=== PATIENT | female | born 1985 | race African-American/Black ===

== ENCOUNTER 2016-09-03 06:00 | Inpatient (IN) ==
[2016-09-03] MEDS ORDERED: Naloxone 0.4 MG/ML INJ IVP PRN (06:42)
[2016-09-03] MEDS ORDERED: Metoclopramide 10 MG/2 ML VIAL IVP PRN (06:42)
[2016-09-03] MEDS ORDERED: Famotidine 20 MG/2 ML VIAL IVP PRN (06:42)
[2016-09-03] MEDS ORDERED: *HR* Nalbuphine 20 MG/ML AMPUL IVP PRN (06:45)
[2016-09-03] MEDS ORDERED: Ringers Solution, Lactated 1,000 ML IVC SCH (06:45)
[2016-09-03 08:18] LABS: Basophils % 0.3 %; Eosinophils # 0.1 K/mcL (0.0-0.6); Eosinophils % 0.6 %; Hematocrit 35.6 % (35.3-44.9); Hemoglobin 12.2 g/dL (11.5-15.4); Immature Granulocytes % 0.6 % (0-4); Lymphocytes # 2.4 K/mcL (0.6-4.6); Mean Corpuscular HGB Conc 34.3 g/dL (31.6-35.5); Mean Corpuscular Hemoglobin 30.2 pg (28.0-33.3); Mean Corpuscular Volume 88.1 fL (83.0-100.0); Mean Platelet Volume 10.5 fL (9.4-12.4); Monocytes # 1.1 K/mcL (0.0-1.3); Monocytes % 6.6 %; Neutrophils # 12.2 K/mcL (1.6-8.9); Platelet Count 258 K/mcL (140-400); Red Blood Count 4.04 M/mcL (3.82-4.97); Red Cell Distribution Width 12.9 % (11.5-14.5); Segmented Neutrophils % 76.9 %
[2016-09-03] MEDS ORDERED: miSOPROStol 25 MCG TABLET PO PRN (08:27)
--- NOTE | 2016-09-03 08:33 | OB Labor Progress Note ---
Date of Encounter: 09/03/16 Time of Encounter: 08:31 Labor Progress Note - Subjective Subjective: Pt without c/o - Vital Signs Vital Signs: BP 154/97 - Cervix Cervix: 2/60/-2 - Heart Tones Heart Tones: RNST - Interventions Interventions: coffman catheter placed in cervix and baloon filled with 40 cc NS - Plan Plan: Will give Cytotec 50 mcg PO. Expect .
[2016-09-03] MEDS ORDERED: cephALEXin 500 MG CAPSULE PO SCH (09:00)
--- NOTE | 2016-09-03 09:42 | OB/GYN History & Physical ---
Date of Encounter: 09/03/16 Time of Encounter: 09:36 History of Present Illness Chief complaint: IOL, IUGR, Chronic HTN HPI: Ms. Paul is a 31 year old female Past Med Surg Social Fam HX - Past Medical History Medical history: hypertension Psychiatric history: no psych history - Past Surgical History Surgical History: no surgical history - Social History Smoking Status: Current every day smoker Packs per day: 1/2 Smokeless Tobacco Status: No Alcohol use: none Drug use: marijuana - Family History Mother Hx Family Cardiac Disorders: Yes (HTN) Obstetrical History - Pregnancies : 1 Medications and Allergies Labetalol [Trandate] 200 mg PO TID 09/03/16 [History] Nitrofurantoin Monohyd/M-Cryst [Macrobid 100 mg Capsule] 100 mg PO BID 09/03/16 [History] Vit/Iron Fumarate/FA [ Tablet] 1 each PO DAILY 09/03/16 [ History] cephALEXin [Keflex] 500 mg PO BID 09/03/16 [History] Allergies No Known Allergies Allergy (Verified 09/03/16 07:28) Results Result Diagrams: 09/03/16 06:38 Abnormal lab results WBC 15.9 K/mcL (4.3-11.1) H 09/03/16 06:38 Neutrophils # 12.2 K/mcL (1.6-8.9) H 09/03/16 06:38 All other labs normal.
[2016-09-03 10:18] LABS: Protein/Creatinine Ratio,Urine 0.11 mg/mg (0-0.20)
[2016-09-03 11:58] LABS: Alanine Aminotransferase 20 Units/L (0-55); Aspartate Amino Transferase 15 Units/L (5-34); BUN/Creatinine Ratio 10 (6-26); Blood Urea Nitrogen 7 mg/dL (7-20); Lactate Dehydrogenase 200 Units/L (159-327); eGFR For African Americans > 60 (> 60); eGFR For Non-African Americans > 60 (> 60)
[2016-09-03] MEDS ORDERED: *HR* Labetalol 20 MG/4 ML SYRINGE IVP ONE (12:22)
--- NOTE | 2016-09-03 12:26 | OB Labor Progress Note ---
Date of Encounter: 09/03/16 Time of Encounter: 12:23 Labor Progress Note - Subjective Subjective: Pt resting in room. Complains of occasional cramping, coffman remains in place. - Vital Signs Vital Signs: Last 2 BP 159/92 and 161/95 - Heart Tones Heart Tones: 125/moderate/+accels/-decels - [place] Choudrant: difficult to asses due to maternal size. - Plan Plan: Discussed with Dr. Diego about BP. Will order 10mg IV labetalol x1 Continue current induction management. . Anticipate
--- NOTE | 2016-09-03 13:51 | OB/GYN History & Physical ---
Date of Encounter: 09/03/16 Time of Encounter: 13:16 Assessment and Plan (1) 37 weeks gestation of Current visit: Yes Status: Acute (2) IUGR (intrauterine growth restriction) Current visit: Yes Status: Acute (3) Hypertension affecting , antepartum, third trimester Current visit: Yes Status: Acute Induction of labor with cytotec and coffman placement. AROM for clear fluid FSE and IUPC placed Start pitocin PIH labs negative Continue TID labetalol Plan of care discussed with Dr. Diego Anticipate History of Present Illness Chief complaint: Induction of labor HPI: Ms. Paul is a 31 year old female , 37+0 here for IOL for CHTN, and IUGR. Pt reports good movement, occasional cramping. Denies vaginal bleeding. 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 Denies headache, visual changes or abdominal pain. Past Med Surg Social Fam HX - Past Medical History Medical history: hypertension, other (pilinoidal cyst) Psychiatric history: no psych history - Past Surgical History Surgical History: no surgical history - Social History Smoking Status: Current every day smoker Packs per day: 1/2 Smokeless Tobacco Status: No Alcohol use: none Drug use: marijuana - Family History Mother Hx Family Cardiac Disorders: Yes (HTN) Obstetrical History - Pregnancies : 1 Para: 0 Term: 0 : 0 Ab's: 0 Livin Medications and Allergies Labetalol [Trandate] 200 mg PO TID 09/03/16 [History] Nitrofurantoin Monohyd/M-Cryst [Macrobid 100 mg Capsule] 100 mg PO BID 09/03/16 [History] Vit/Iron Fumarate/FA [ Tablet] 1 each PO DAILY 09/03/16 [ History] cephALEXin [Keflex] 500 mg PO BID 09/03/16 [History] Allergies No Known Allergies Allergy (Verified 09/03/16 07:28) Review of System OB All systems PM: reviewed and no additional remarkable complaints except as stated Exam - Constitutional Constitutional: well developed, well nourished, no acute distress, obese - Lungs Respiratory exam: CTAB - Cardiovascular Cardiovascular exam: RRR, +S1 - Abdomen Abdomen: Present: bowel sounds normal, gravid, non tender - Extremities Deep Tendon Reflex Grade: 2+ Normal - Vulva Vulva: bilateral: normal - Vagina Vagina: Present: normal moisture - Cervix Dilation: 4 Effacement: 50 Station: -2 - Uterus Uterus exam: Present: normal size, normal contour Results Result Diagrams: 09/03/16 06:38 09/03/16 06:38 Abnormal lab results WBC 15.9 K/mcL (4.3-11.1) H 09/03/16 06:38 Neutrophils # 12.2 K/mcL (1.6-8.9) H 09/03/16 06:38 Urine Total Protein 30 mg/dL (1-14) H 09/03/16 09:42 All other labs normal.
[2016-09-03] MEDS ORDERED: Oxytocin 20 units/ LR 1000 mL 20 UNIT/1,000 ML BAG IVC ONE (14:04)
[2016-09-03] MEDS ORDERED: Oxytocin 20 units/ LR 1000 mL 20 UNIT/1,000 ML BAG IVC SCH (14:30)
[2016-09-03] MEDS ORDERED: EPHEDrine 50 MG/ML VIAL IVP PRN (14:46)
[2016-09-03] MEDS ORDERED: *HR* Ropivacaine/PF 0.2% 10 ML AMPUL EP ONE (14:46)
[2016-09-03] MEDS ORDERED: *HR* FentaNYL (PF) 100 MCG/2 ML VIAL EP ONE (14:46)
--- NOTE | 2016-09-03 14:50 | Anesthesia Evaluation PreOp ---
Date of Encounter: 09/03/16 Time of Encounter: 14:35 - Past History Planned Operation: TONI Cardiac History: HTN Pulmonary History: Smoker (5 cigs/day) [employer] History: Denies Any Significant HX Other Medical History: Denies Any Significant HX Anesthesia History: No Prior Anesthetic Complications (No prior anesthesia. No family history of issues.) : Yes Alcohol Use: none Drug use: marijuana Medications and Allergies Labetalol [Trandate] 200 mg PO TID 09/03/16 [History] Nitrofurantoin Monohyd/M-Cryst [Macrobid 100 mg Capsule] 100 mg PO BID 09/03/16 [History] Vit/Iron Fumarate/FA [ Tablet] 1 each PO DAILY 09/03/16 [ History] cephALEXin [Keflex] 500 mg PO BID 09/03/16 [History] Allergies No Known Allergies Allergy (Verified 09/03/16 07:28) - Meds/Allergy Pre-op Review Medications Reviewed: Yes Allergies Reviewed: Yes Beta Blockers on Current Med List: No Anesthesia Results - Labs 09/03/16 06:38 09/03/16 06:38 Anesthesia Exam Height: 1.65m Weight: 123.1kg NPO (# of Hours): >4hr Pain Scale: 6 Pain Scale Used: Numeric (1 - 10) - HEENT Pupil (Motor): Pupils equal Mallampati: III Teeth: Normal Oral Opening: Greater than 3 - [employer] LOC: Oriented [employer] Motor: Normal RUE, Normal LUE, Normal RLE, Normal LLE, Normal Face [employer] Sensory: Normal: RUE, LUE, RLE, LLE, Face - Cardiac Rhythm: Regular Murmur: None JVD: No Carotid Bruit: No - Pulmonary Breath Sounds: bilateral Clear Respiratory Effort: Symmetrical Anesthesia Assess/Plan ASA Score: 3 (BMI 45.2) Modified [place] Scale for Level of Consciousness: Cooperative, oriented, and tranquil Anesthetic Plan: Regional Monitoring Plan: Standard Monitors
[2016-09-03] MEDS ORDERED: ROPIVACAINE HCL/PF 0.5% 30 ML VIAL ONE (14:58)
[2016-09-03] MEDS ORDERED: *HR* FentaNYL (PF) 100 MCG/2 ML VIAL ONE ×2 (14:58→22:13)
[2016-09-03] MEDS ORDERED: Epidural Premix (fent/bupiv) 110 ML EP ONE ×2 (14:59→21:44)
[2016-09-03] MEDS ORDERED: Epidural Premix (fent/bupiv) 110 ML EP SCH (15:00)
--- NOTE | 2016-09-03 15:27 | Anesthesia Procedures ---
Date of Encounter: 09/03/16 Time of Encounter: 15:03 Procedures: Anesthesia - Epidural/Spinal Patient ID/Chart reviewed: Yes Patient examined: Yes OB Eval: Gestational age: 37 OB Eval: : 1 OB Eval: Hx Para: 0 OB Eval: Contractions: Non-stressed pattern Consent Obtained: Yes Supplemental Oxygen: None/Room Air Site Prep: Aseptic Technique, Sterile prep and drape, 0.5% Chlorhexidine/Alcohol Patient position: upright Local Anesthetic: Lidocaine 1% Amount of Local Anesthetic used: 3 Touhy Needle Gauge: 18 Touhy Needle Depth (cm): 9 Catheter Depth at Skin (cm): 15 Test Dose (1.5% Lido + Epi): Volume given (mls): 5 Test Dose Result: Negative Loading Dose: Fentanyl (mcg): 100 Loading Dose: Other: Ropivacaine 0.5% 10mL Loading Dose Administered: Thru Catheter Infusion Med: 0.125% Bupivacaine w/ 2 mcg/ml Fentanyl Infusion Rate (mls/hr): 15 (Bolus 4mL q15min; Max 3/hr) Catheter Secured in Place: Tegaderm Interspace Used: L3-L4 Loss of Resistance (PATRICIA): Yes Blood: No CSF: No Paresthesia: No Procedure: x1 attempt. Patient tolerated well and reported increased comfort within 3 contractions following bolus. Vitals + FHT's: VSS and FHR stable throughout procedure. See nursing documentation.
[2016-09-03] MEDS ORDERED: Ondansetron 4 MG/2 ML VIAL IVP PRN (16:50)
--- NOTE | 2016-09-03 17:26 | OB Labor Progress Note ---
Date of Encounter: 09/03/16 Time of Encounter: 17:26 Labor Progress Note - Subjective Subjective: Pt resting in bed with epidural - Vital Signs Vital Signs: last BP 117/70 - Cervix Cervix: 4/50/-2 per RN - Heart Tones Heart Tones: 120/moderate/+accels/-decles - Mellott Mellott: q2 adequate MVU - Interventions Interventions: Continue pitocin per policy Hold labetalol unless BPs rise Anticipate
--- NOTE | 2016-09-03 18:40 | OB Labor Progress Note ---
Date of Encounter: 09/03/16 Time of Encounter: 18:39 Labor Progress Note - Subjective Subjective: Pt doing well without c/o, comfortable with epidural. - Cervix Cervix: 4-5/100/-1 - Heart Tones Heart Tones: RNST - [place]: uc's q 60-90 sec 80 MMHG - Plan Plan: Expect
--- NOTE | 2016-09-04 00:23 | OB/GYN Procedure Note ---
Delivery - Delivery Date: 09/04/16 Provider: Reynaldo Diego Intrapartum events: none Delivery induction: misoprostol Delivery monitor: internal FHT, internal uterine Anesthesia: epidural Estimated Blood Loss: 100 - (s) Infant A Infant Delivery Date: 09/04/16 Infant Delivery Time: 00:00 Presentation: vertex Position: MIREYA Route of delivery: vacuum extraction Gender: Female Viability: Viable Pounds: 4 Ounces: 5 at 1 minute: 8 at 5 mins: 8 Shoulder Dystocia: not encountered Specimens collected: cord blood Placenta: spontaneous Cord: other (cord around body) - Repair Laceration Description: Perineal - 1st Degree - Complications Delivery complications: none - Disposition Mom disposition: stable in LDR disposition: stable in LDR - Comments Comments: Vacuum applied at + 3 station because of recurrent deep variable decels. Vacuum applied at pressure of 550 mmhg for 26 sec and with good maternal effort infant delivered without incident. There was cord around left arm that was reduced during delivery. 1st degree laceration repaired with 3-0 vicryl without incident. EBL 100 cc. No complications.
[2016-09-04] MEDS ORDERED: Oxytocin 20 units/ LR 1000 mL 20 UNIT/1,000 ML BAG IVC SCH (03:04)
[2016-09-04] MEDS ORDERED: Acetaminophen 325 MG TABLET PO PRN (03:04)
[2016-09-04] MEDS ORDERED: Measles/Mumps/Rubella Vacc 0.5 ML VIAL SQ PRN (03:04)
[2016-09-04] MEDS ORDERED: Rho Immune Globulin 1,500 UNIT SYRINGE IM PRN (03:04)
[2016-09-04] MEDS: Ibuprofen 600 MG TABLET PO PRN ×3 (03:50→20:52)
[2016-09-04 05:59] LABS: Basophils % 0.2 %; Eosinophils % 0.2 %; Hemoglobin 12.5 g/dL (11.5-15.4); Immature Granulocytes % 0.7 % (0-4); Lymphocytes # 2.4 K/mcL (0.6-4.6); Lymphocytes % 9.7 %; Mean Corpuscular HGB Conc 34.7 g/dL (31.6-35.5); Mean Corpuscular Hemoglobin 30.5 pg (28.0-33.3); Mean Corpuscular Volume 87.8 fL (83.0-100.0); Mean Platelet Volume 9.9 fL (9.4-12.4); Monocytes # 1.7 K/mcL (0.0-1.3); Neutrophils # 20.1 K/mcL (1.6-8.9); Platelet Count 240 K/mcL (140-400); Red Cell Distribution Width 12.9 % (11.5-14.5); Segmented Neutrophils % 82.2 %
[2016-09-04 06:00] LABS: Basophils # 0.1 K/mcL (0.0-0.2); Eosinophils # 0.1 K/mcL (0.0-0.6)
[2016-09-04] MEDS: Prenatal Vit/FA 1 EACH TABLET PO SCH (09:53)
[2016-09-04] MEDS: Nitrofurantoin (BID) 100 MG CAPSULE PO SCH ×2 (09:53→20:52)
[2016-09-04] MEDS: cephALEXin 500 MG CAPSULE PO SCH ×2 (09:53→20:51)
[2016-09-05] MEDS: Ibuprofen 600 MG TABLET PO PRN (04:15)
[2016-09-05] MEDS: cephALEXin 500 MG CAPSULE PO SCH (08:16)
[2016-09-05] MEDS: Prenatal Vit/FA 1 EACH TABLET PO SCH (08:16)
[2016-09-05] MEDS: Nitrofurantoin (BID) 100 MG CAPSULE PO SCH (08:16)
--- NOTE | 2016-09-05 08:19 | Discharge Summary ---
Date of Encounter: 09/05/16 Time of Encounter: 08:17 - Discharge Diagnosis (1) 37 weeks gestation of Priority: Primary Status: Acute (2) IUGR (intrauterine growth restriction) Priority: Primary Status: Acute (3) Hypertension affecting , antepartum, third trimester Priority: Primary Status: Acute Comments: BP stable for patient baseline. Instructed patient to call PCP today and make follow up appointment for medication management. Discussed with Dr. Orourke (4) Vaginal delivery Priority: Primary Status: Acute Comments: Meeting all milestones. Pain well managed on po pain medication. Cyst continues draining. Remains on ATB, desires discharge - Discharge Medications Prescriptions: Ibuprofen [Motrin] 600 mg PO Q6HR PRN #60 tablet PRN Reason: Cramping Docusate [Colace] 100 mg PO BID #60 capsule Home Medications: Labetalol [Trandate] 200 mg PO TID 09/03/16 [History] Vit/Iron Fumarate/FA [ Tablet] 1 each PO DAILY 09/03/16 [ History] cephALEXin [Keflex] 500 mg PO BID 09/03/16 [History] Acetaminophen [Tylenol] 650 mg PO Q6HR PRN #0 tablet 09/05/16 [Rx] Docusate [Colace] 100 mg PO BID #60 capsule 09/05/16 [Rx] Ibuprofen [Motrin] 600 mg PO Q6HR PRN #60 tablet 09/05/16 [Rx] Allergies/Adverse Reactions: Allergies No Known Allergies Allergy (Verified 09/03/16 07:28) Data Procedures and tests throughout hospitalization: Laboratory Tests 09/03/16 09/03/16 09/03/16 06:38 06:38 09:42 WBC 15.9 H RBC 4.04 Hgb 12.2 Hct 35.6 MCV 88.1 MCH 30.2 MCHC 34.3 RDW 12.9 Plt Count 258 MPV 10.5 Immature Gran % 0.6 Seg Neutrophils % 76.9 Lymphocytes % 15.0 Monocytes % 6.6 Eosinophils % 0.6 Basophils % 0.3 Neutrophils # 12.2 H Lymphocytes # 2.4 Monocytes # 1.1 Eosinophils # 0.1 Basophils # 0.0 BUN 7 Creatinine 0.72 Est GFR ( Amer) > 60 Est GFR (Non-Af Amer) > 60 BUN/Creatinine Ratio 10 Uric Acid 4.0 AST 15 ALT 20 Lactate Dehydrogenase 200 Urine Creatinine 286 Protein/Creatinin Ratio 0.11 Urine Total Protein 30 H 09/04/16 05:42 WBC 24.4 H D RBC 4.10 Hgb 12.5 Hct 36.0 MCV 87.8 MCH 30.5 MCHC 34.7 RDW 12.9 Plt Count 240 MPV 9.9 Immature Gran % 0.7 Seg Neutrophils % 82.2 Lymphocytes % 9.7 Monocytes % 7.0 Eosinophils % 0.2 Basophils % 0.2 Neutrophils # 20.1 H Lymphocytes # 2.4 Monocytes # 1.7 H Eosinophils # 0.1 Basophils # 0.1 BUN Creatinine Est GFR ( Amer) Est GFR (Non-Af Amer) BUN/Creatinine Ratio Uric Acid AST ALT Lactate Dehydrogenase Urine Creatinine Protein/Creatinin Ratio Urine Total Protein Date of admission: 09/03/16 06:13 Primary care physician: Sia Oakley Consults: 09/04/16 03:04 Consult to [employer] [CONS] Routine Comment: Vaginal delivery, consult needed Discharging clinician: Malini Peralta Anticipated date of discharge: 09/05/16 - Patient Status Disposition: Home, Self-Care Condition: Good Functional capacity at discharge: independent ambulation Overall status at discharge: patient is back to baseline - Discharge Instructions Instructions: Chronic Hypertension (DC) Follow Up With: Sia Oakley [Primary Care Provider] - Elodia Forrester DO [Partnered Physician] - Additional Instructions: Call PCP today and make appointment for follow up for Chronic Hypertension. Continue Keflex until prescription complete - Diet and Activity Activity: increase activity as tolerated Diet: regular diet Hospital Course Reason for admission: induction of labor, IUP at term Delivery: , vacuum extraction Laceration: 1st degree Other procedures: none complications: none Discharge diagnosis: IUP at term delivered [place] baby: female Hospital course: Delivery - Delivery Date: 09/04/16 Provider: Reynaldo Diego Intrapartum events: none Delivery induction: misoprostol Delivery monitor: internal FHT, internal uterine Anesthesia: epidural Estimated Blood Loss: 100 - (s) Infant A Delivery Date: 09/04/16 Delivery Time: 00:00 Presentation: vertex Position: MIREYA Route of delivery: vacuum extraction Gender: Female Viability: Viable Pounds: 4 Ounces: 5 at 1 minute: 8 at 5 mins: 8 Shoulder Dystocia: not encountered Specimens collected: cord blood Placenta: spontaneous Cord: other (cord around body) - Repair Laceration Description: Perineal - 1st Degree - Complications Delivery complications: none - Disposition Mom disposition: stable in PP and appropriate for discharge Time Attestation: Total time spent providing and/or coordinating discharge services: Time Spent: Less than 30 minutes Exam - Constitutional Vitals: Temp Pulse Resp BP Pulse Ox 97.8 F 82 16 144/89 97 09/04/16 20:40 09/05/16 04:15 09/04/16 21:02 09/05/16 04:15 09/04/16 20:40 General appearance IM: A&O X 3 - Respiratory Respiratory exam: Present: CTAB - Cardiovascular Cardiovascular exam IM: Present: RRR - GI/Abdominal GI/Abdominal exam IM: normal bowel sounds, soft - Uterine Tone: Firm Uterus Position: At Umbilicus - Extremities Exam Extremities exam IM: Present: normal capillary refill, normal inspection - Neurological Exam Neurological exam: normal gait, oriented X3 - Psychiatric Additional comments: Reports good mood.
[2016-09-05 09:11] VITALS: BP 139/105
== END 2016-09-05 09:30 | disposition home or self-care (01) | DRG 560 ==
LOC: 1NENULAB 06:13 → 1NENUOBS 09-04 02:16
PROVIDERS: ADMIT Obstetrics & Gynecology; ATTEND Obstetrics & Gynecology

== ENCOUNTER 2017-09-24 12:54 | Observation (INO) ==
[2017-09-24 14:03] LABS: Bilirubin,Urine Negative (Negative); Blood,Urine Negative (Negative); Clarity,Urine Clear (Clear); Color,Urine Yellow (Yellow); Glucose,Urine (UA) Normal (Normal); Ketones,Urine Negative (Negative); Leukocyte Esterase,Urine Negative (Negative); Nitrite,Urine Negative (Negative); Protein,Urine Negative (Neg-Trace); Urobilinogen,Urine Normal (Normal)
[2017-09-24 14:36] LABS: Amphetamine Screen,Urine Negative ng/mL (Cutoff=1000); Barbiturate Screen,Urine Negative ng/mL (Cutoff=200); Benzodiazepines Screen,Urine Negative ng/mL (Cutoff=200); Cannabinoid Screen,Urine Negative ng/mL (Cutoff = 50); Cocaine Screen,Urine Negative ng/mL (Cutoff= 300); Creatinine,Urine 26 mg/dL; Opiate Screen,Urine Negative ng/mL (Cutoff=300); Phencyclidine Screen,Urine Negative ng/mL (Cutoff=25); Protein/Creatinine Ratio,Urine 0.19 mg/mg (0.00-0.20)
[2017-09-24 15:25] LABS: Basophils % 0.2 %; Eosinophils # 0.1 K/mcL (0.0-0.6); Eosinophils % 0.4 %; Hematocrit 35.8 % (35.3-44.9); Hemoglobin 12.7 g/dL (11.5-15.4); Immature Granulocytes % 0.5 % (0-4); Lymphocytes # 2.5 K/mcL (0.6-4.6); Lymphocytes % 15.2 %; Mean Corpuscular HGB Conc 35.5 g/dL (31.6-35.5); Mean Corpuscular Hemoglobin 30.3 pg (28.0-33.3); Mean Corpuscular Volume 85.4 fL (83.0-100.0); Mean Platelet Volume 9.9 fL (9.4-12.4); Monocytes # 0.9 K/mcL (0.0-1.3); Monocytes % 5.2 %; Neutrophils # 12.9 K/mcL (1.6-8.9); Platelet Count 245 K/mcL (140-400); Red Blood Count 4.19 M/mcL (3.82-4.97); Segmented Neutrophils % 78.5 %
[2017-09-24 15:45] LABS: Alanine Aminotransferase 24 Units/L (7-52); Aspartate Amino Transferase 17 Units/L (13-39); BUN/Creatinine Ratio 6 (6-26); Blood Urea Nitrogen 4 mg/dL (6-20); Lactate Dehydrogenase 142 Units/L (140-271); Uric Acid 4.8 mg/dL (2.3-7.6); eGFR For Non-African Americans > 60 (> 60)
[2017-09-24] MEDS ORDERED: NIFEdipine XL (24 HR) 30 MG TAB.ER.24 PO ONE (16:01)
[2017-09-24] MEDS ORDERED: *HR* Labetalol 20 MG/4 ML SYRINGE IVP ONE ×6 (16:45→17:45)
[2017-09-24] MEDS ORDERED: Ringers Solution, Lactated 1,000 ML ONE (16:54)
--- NOTE | 2017-09-24 16:54 | OB/GYN History & Physical ---
Date of Encounter: 09/24/17 Time of Encounter: 16:48 Assessment and Plan (1) 34 weeks gestation of Current visit: Yes Status: Acute (2) Hypertension affecting , antepartum, third trimester Current visit: Yes Status: Acute Severe range BP uncontrolled with OP therapy Admit for blood pressure control IV labetalol protocol Magnesium per protocol Dr. Moura consulted and agrees. History of Present Illness Chief complaint: PIH eval HPI: Ms. Paul is a 32 year old female at 34 weeks 6 days gestation with an estimated date of of 10/30/17 dated by early ultrasound. She presents today from her office visit for PI evaluation. She states in the office today her blood pressures were 150s to 160s over 90s. She reports that she has been taking labetalol 3 times a day for quite some time during her now. She denies headaches, blurry vision, epigastric pain. She endorses good movement and denies contractions, leakage of fluid, vaginal bleeding. Past Med Surg Social Fam HX - Past Medical History Medical history: hypertension, other Psychiatric history: no psych history - Past Surgical History Surgical History: no surgical history - Social History Smoking Status: Current every day smoker Packs per day: 4 cigarrettes per day Smokeless Tobacco Status: No Alcohol use: none Drug use: marijuana - Family History Mother Family Member Ethnicity: Non- Living Status: Still Living Hx Family Cardiac Disorders: Yes (HTN) Hx Family Respiratory Disorders: No Hx Family Cancer: No Hx Family GI Disorders: No Hx Family Genitourinary Disorders: No Hx Family Endocrine Disorder: No Hx Family Musculoskeletal Disorders: No Hx Family Neuromuscular Disorders: No Hx Family Neurologic Disorders: No Hx Family HEENT Disorders: No Hx Family Autoimmune Disorders: No Hx Family Reproductive Disorders: No Hx Family Psychosocial Disorders: No Hx Family Medical Disorders: No Obstetrical History - Pregnancies : 2 Para: 1 Term: 1 (# 1: 09/04/16,Female,July, 4lbs 5oz,vaginal, 37 wks. ) : 0 Ab's: 0 Livin Medications and Allergies Labetalol [Trandate] 200 mg PO TID 09/03/16 [History] Vit/Iron Fumarate/FA [ Tablet] 1 each PO DAILY 09/03/16 [ History] cephALEXin [Keflex] 500 mg PO BID 09/03/16 [History] 3 Allergy/AdvReac Type Severity Reaction Status Date / Time No Known Allergies Allergy Verified 09/03/16 07:28 Review of System OB All systems PM: reviewed and no additional remarkable complaints except as stated Exam - Constitutional Constitutional: well developed, well nourished, mild distress, obese - HEENT HEENT: PERRL, Normocephaly, Mucus Membranes Moist - Neck Neck exam: full ROM - Lungs Respiratory exam: CTAB - Cardiovascular Cardiovascular exam: RRR, +S1, +S2 - Breasts Breast: bilateral: normal - Abdomen Abdomen: Present: bowel sounds normal, gravid, non tender - Extremities Extremities exam: normal capillary refill, normal inspection, pedal edema, radial pulses palpable and symmetrical Deep Tendon Reflex Grade: 2+ Normal - Vulva Vulva: bilateral: normal - Uterus Uterus exam: Present: normal size, normal contour - Anus/Rectum Anus/Rectum: Present: normal perianal skin Results Result Diagrams: 09/24/17 15:10 09/24/17 15:10 Abnormal lab results WBC 16.4 K/mcL (4.3-11.1) H 09/24/17 15:10 Neutrophils # 12.9 K/mcL (1.6-8.9) H 09/24/17 15:10 BUN 4 mg/dL (6-20) L 09/24/17 15:10 All other labs normal. - VTE Reasons for not Prescribing Prophylaxis: Treatment not Indicated - Low risk for VTE
[2017-09-24] MEDS: Magnesium Sulfate 20 gm/500mL 20 GM/500 ML IV.SOLN IVC SCH (17:01)
[2017-09-24] MEDS: Betamethasone Acet/SodPhos 6 MG/ML MDV IM SCH (18:29)
[2017-09-24] MEDS ORDERED: Acetaminophen 325 MG TABLET PO ONE (20:05)
[2017-09-25] MEDS ORDERED: Ringers Solution, Lactated 1,000 ML ONE (04:10)
[2017-09-25] MEDS ORDERED: *HR* Labetalol 20 MG/4 ML SYRINGE IVP ONE (04:33)
[2017-09-25] MEDS: Magnesium Sulfate 20 gm/500mL 20 GM/500 ML IV.SOLN IVC SCH (04:38)
[2017-09-25 07:45] LABS: Basophils % 0.1 %; Hematocrit 35.5 % (35.3-44.9); Hemoglobin 12.3 g/dL (11.5-15.4); Immature Granulocytes % 0.5 % (0-4); Lymphocytes # 1.3 K/mcL (0.6-4.6); Lymphocytes % 7.4 %; Mean Corpuscular HGB Conc 34.6 g/dL (31.6-35.5); Mean Corpuscular Hemoglobin 29.9 pg (28.0-33.3); Mean Corpuscular Volume 86.2 fL (83.0-100.0); Mean Platelet Volume 10.1 fL (9.4-12.4); Monocytes # 0.5 K/mcL (0.0-1.3); Monocytes % 2.8 %; Neutrophils # 15.9 K/mcL (1.6-8.9); Platelet Count 277 K/mcL (140-400); Red Blood Count 4.12 M/mcL (3.82-4.97); Red Cell Distribution Width 13.2 % (11.5-14.5); Segmented Neutrophils % 89.2 %
[2017-09-25 08:04] LABS: Alanine Aminotransferase 24 Units/L (7-52); Aspartate Amino Transferase 18 Units/L (13-39); BUN/Creatinine Ratio 7 (6-26); Blood Urea Nitrogen 4 mg/dL (6-20); Lactate Dehydrogenase 149 Units/L (140-271); Uric Acid 4.9 mg/dL (2.3-7.6); eGFR For Non-African Americans > 60 (> 60)
[2017-09-25] MEDS ORDERED: Prenatal Vit/FA 1 EACH TABLET PO SCH (09:00)
--- NOTE | 2017-09-25 09:06 | OB/GYN Progress Note ---
Date of Encounter: 09/25/17 Time of Encounter: 09:04 - Assessment and Plan (1) 34 weeks gestation of Current Visit: Yes Status: Acute (2) Hypertension affecting , antepartum, third trimester Current Visit: Yes Status: Acute Increase Labatolol to 400 mg po tid. She was recently out of bed and had an elevated blood pressure (178/105) repeat after lying down 163/88. Continue bedrest with magnesium as previously ordered. Second dose of steroids this evening. We will continue to monitor closely for s/sx of superimposed pre-e which she does not appear to have based on her labs and lack of symptoms. Subjective - Subjective Principal diagnosis: chronic hypertension with worse pressures requiring increase in meds Interval history: Patient denies any visual changes or RUQ pain. She reports a slight headache that she attributes to no sleep. She reports good movement. She denies any contractions, leaking fluid, or vaginal bleeding. She denies any other concerns this morning. Antepartum ROS: movement normal, no new complaints, no loss of fluid, no vaginal bleeding, no contractions Objective - Vital Signs Vital Signs: Intake and Output 09/24/17 09/25/17 09/25/17 23:59 07:59 15:59 Intake Total 500 / 500 Output Total 600 / 600 Balance -600 / -600 500 / 500 Intake: IV Fluids 500 / 500 Magnesium Sulfate Premix 20 gm/ 500 / 500 500mL 20 gm In 500 ml @ 2 GM/HR 50 mls/hr IVC .Q10H ANGELITA Rx#: [id number] Output: Urine 600 / 600 - Exam FHR: category 1 Auscultation: bilateral: normal Abdomen: Present: soft, gravid. Absent: tenderness - Labs Labs: Abnormal lab results WBC 17.8 K/mcL (4.3-11.1) H 09/25/17 07:09 Neutrophils # 15.9 K/mcL (1.6-8.9) H 09/25/17 07:09 BUN 4 mg/dL (6-20) L 09/25/17 07:09 - Allied health notes Allied health notes reviewed: nursing
--- NOTE | 2017-09-25 18:07 | Discharge Summary ---
Date of Encounter: 09/25/17 Time of Encounter: 18:05 - Discharge Diagnosis (1) Hypertension affecting , antepartum, third trimester Priority: Primary Status: Acute Comments: Steroid course complete. BP has been stable with change in po medication. Discharged home on 400 mg labetalol TID. Discharged home with labor and pre-e precautions. - Discharge Medications Prescriptions: Labetalol HCl 400 mg PO TID #180 tablet Home Medications: Vit/Iron Fumarate/FA [ Tablet] 1 each PO DAILY 09/03/16 [ History] cephALEXin [Keflex] 500 mg PO BID 09/03/16 [History] Labetalol HCl 400 mg PO TID #180 tablet 09/25/17 [Rx] Labetalol [Trandate] 400 mg PO TID tablet 09/25/17 [Rx] Vit/FA 1 each PO DAILY tablet 09/25/17 [Rx] Allergies/Adverse Reactions: 3 Allergy/AdvReac Type Severity Reaction Status Date / Time No Known Allergies Allergy Verified 09/03/16 07:28 Data Procedures and tests throughout hospitalization: Laboratory Tests 09/24/17 09/24/17 09/24/17 13:46 13:46 13:46 WBC RBC Hgb Hct MCV MCH MCHC RDW Plt Count MPV Immature Gran % Seg Neutrophils % Lymphocytes % Monocytes % Eosinophils % Basophils % Neutrophils # Lymphocytes # Monocytes # Eosinophils # Basophils # BUN Creatinine Est GFR ( Amer) Est GFR (Non-Af Amer) BUN/Creatinine Ratio Uric Acid AST ALT Lactate Dehydrogenase Urine Color Yellow Urine Clarity Clear Urine pH 7.0 Ur Specific [place] 1.010 Urine Protein Negative Urine Glucose (UA) Normal Urine Ketones Negative Urine Blood Negative Urine Nitrite Negative Urine Bilirubin Negative Urine Urobilinogen Normal Ur Leukocyte Esterase Negative Urine Creatinine 26 Protein/Creatinin Ratio 0.19 Urine Total Protein 5 Urine Opiates Screen Negative Ur Barbiturates Screen Negative Ur Phencyclidine Scrn Negative Ur Amphetamines Screen Negative U Benzodiazepines Scrn Negative Urine Cocaine Screen Negative U Marijuana (THC) Screen Negative Ur Drug Screen Interp See Below Specimen Rejected Clotted 09/24/17 09/24/17 09/25/17 15:10 15:10 07:09 WBC 16.4 H 17.8 H RBC 4.19 4.12 Hgb 12.7 12.3 Hct 35.8 35.5 MCV 85.4 86.2 MCH 30.3 29.9 MCHC 35.5 34.6 RDW 13.0 13.2 Plt Count 245 277 MPV 9.9 10.1 Immature Gran % 0.5 0.5 Seg Neutrophils % 78.5 89.2 Lymphocytes % 15.2 7.4 Monocytes % 5.2 2.8 Eosinophils % 0.4 0.0 Basophils % 0.2 0.1 Neutrophils # 12.9 H 15.9 H Lymphocytes # 2.5 1.3 Monocytes # 0.9 0.5 Eosinophils # 0.1 0.0 Basophils # 0.0 0.0 BUN 4 L Creatinine 0.62 Est GFR ( Amer) > 60 Est GFR (Non-Af Amer) > 60 BUN/Creatinine Ratio 6 Uric Acid 4.8 AST 17 ALT 24 Lactate Dehydrogenase 142 Urine Color Urine Clarity Urine pH Ur Specific [place] Urine Protein Urine Glucose (UA) Urine Ketones Urine Blood Urine Nitrite Urine Bilirubin Urine Urobilinogen Ur Leukocyte Esterase Urine Creatinine Protein/Creatinin Ratio Urine Total Protein Urine Opiates Screen Ur Barbiturates Screen Ur Phencyclidine Scrn Ur Amphetamines Screen U Benzodiazepines Scrn Urine Cocaine Screen U Marijuana (THC) Screen Ur Drug Screen Interp Specimen Rejected 09/25/17 07:09 WBC RBC Hgb Hct MCV MCH MCHC RDW Plt Count MPV Immature Gran % Seg Neutrophils % Lymphocytes % Monocytes % Eosinophils % Basophils % Neutrophils # Lymphocytes # Monocytes # Eosinophils # Basophils # BUN 4 L Creatinine 0.60 Est GFR ( Amer) > 60 Est GFR (Non-Af Amer) > 60 BUN/Creatinine Ratio 7 Uric Acid 4.9 AST 18 ALT 24 Lactate Dehydrogenase 149 Urine Color Urine Clarity Urine pH Ur Specific [place] Urine Protein Urine Glucose (UA) Urine Ketones Urine Blood Urine Nitrite Urine Bilirubin Urine Urobilinogen Ur Leukocyte Esterase Urine Creatinine Protein/Creatinin Ratio Urine Total Protein Urine Opiates Screen Ur Barbiturates Screen Ur Phencyclidine Scrn Ur Amphetamines Screen U Benzodiazepines Scrn Urine Cocaine Screen U Marijuana (THC) Screen Ur Drug Screen Interp Specimen Rejected Labs on day of discharge: Labs from last 24 hours 09/25/17 09/25/17 07:09 07:09 WBC 17.8 H RBC 4.12 Hgb 12.3 Hct 35.5 MCV 86.2 MCH 29.9 MCHC 34.6 RDW 13.2 Plt Count 277 MPV 10.1 Immature Gran % 0.5 Seg Neutrophils % 89.2 Lymphocytes % 7.4 Monocytes % 2.8 Eosinophils % 0.0 Basophils % 0.1 Neutrophils # 15.9 H Lymphocytes # 1.3 Monocytes # 0.5 Eosinophils # 0.0 Basophils # 0.0 BUN 4 L Creatinine 0.60 Est GFR ( Amer) > 60 Est GFR (Non-Af Amer) > 60 BUN/Creatinine Ratio 7 Uric Acid 4.9 AST 18 ALT 24 Lactate Dehydrogenase 149 Date of admission: 09/24/17 12:54 Primary care physician: Sia Oakley Discharging clinician: Malini Peralta Anticipated date of discharge: 09/25/17 - Patient Status Disposition: Home, Self-Care Condition: Good Functional capacity at discharge: independent ambulation Overall status at discharge: patient is back to baseline - Discharge Instructions Follow Up With: NONE,PCP [Non-Partnered Physician] - Elodia Forrester DO [Partnered Physician] - Additional Instructions: LABOR AND DELIVERY DISCHARGE INSTRUCTIONS Signs and Symptoms to be Reported to your Doctor Immediately: * Sudden gush, continuous or intermittent lead of fluid from vagina (note the time of gush and color of fluid) * Onset of bright red vaginal bleeding with or without pain (if you had a vaginal exam during this visit you may notice some dark red spotting. This is normal.) * Lower abdominal cramping or backache that is premenstrual-like feeling. * More than 6 contractions in one hour. * Burning during urination, having to urinate more frequently or pain in your mid-back. * A change in the baby's activity. This could be an increase or decrease in activity. * Severe headache which does not go away with tylenol. * Sudden swelling in the face, hands, arms and/or legs. * Upper abdominal pain - sometimes associated with heartburn or nausea and is not relieved by Maalox, Mylanta or Tums. * Dizziness or blurred vision or visual disturbances (seeing stars/lights). * Kick Counts One hour after a meal, lay down on one side in a quiet place. Count the number of duong the baby moves during an hour. If less than 6 movements, notify your physician. Diet: *Force fluids - 8-10 tall glasses of fluid per day. May include popsicles and jello. *Limit caffeine - this includes chocolate, coffee, tea, any soft drink containing such as all sarah, [place]der Yellow and Mountain Dew - Diet and Activity Activity: resume usual activities as tolerated Diet: regular diet Hospital Course [facility]ONG [facility]OOKER Reason for admission: other ([facility] preganancy ) Post op complications: Completed betamethasone course, BP now stable on new po med regimine. Discharged home Time Attestation: Total time spent providing and/or coordinating discharge services: Exam - Constitutional General appearance IM: A&O X 3 - Respiratory Respiratory exam: Present: CTAB - Cardiovascular Cardiovascular exam IM: Present: RRR - GI/Abdominal GI/Abdominal exam IM: soft - Neurological Exam Neurological exam: normal gait, oriented X3, reflexes normal - VTE Reasons for not Prescribing Prophylaxis: Treatment not Indicated - Low risk for VTE
[2017-09-25] MEDS: Betamethasone Acet/SodPhos 6 MG/ML MDV IM SCH (18:39)
== END 2017-09-25 18:55 | disposition home or self-care (01) ==
LOC: 1NENULAB
PROVIDERS: ADMIT Student in an Organized Health Care Education/Training Program; ATTEND Student in an Organized Health Care Education/Training Program

== ENCOUNTER 2017-09-28 14:45 | Observation (INO) ==
[2017-09-28] MEDS ORDERED: *HR* LORazepam 2 MG/ML VIAL IVP ONE ×2 (14:46→17:35)
[2017-09-28 15:56] LABS: Amphetamine Screen,Urine Negative ng/mL (Cutoff=1000); Barbiturate Screen,Urine Negative ng/mL (Cutoff=200); Benzodiazepines Screen,Urine Negative ng/mL (Cutoff=200); Cannabinoid Screen,Urine Negative ng/mL (Cutoff = 50); Cocaine Screen,Urine Negative ng/mL (Cutoff= 300); Opiate Screen,Urine Negative ng/mL (Cutoff=300); Phencyclidine Screen,Urine Negative ng/mL (Cutoff=25)
[2017-09-28] MEDS ORDERED: *HR* Labetalol 20 MG/4 ML SYRINGE IVP ONE ×3 (16:08→20:17)
--- NOTE | 2017-09-28 16:17 | OB/GYN Progress Note ---
Date of Encounter: 09/28/17 Time of Encounter: 16:15 - Assessment and Plan (1) 35 weeks gestation of Current Visit: Yes Status: Acute Continue routine care as scheduled labor precautions given Discharge home (2) NST (non-stress test) reactive on surveillance Current Visit: Yes Status: Acute (3) Hypertension affecting , antepartum, third trimester Current Visit: Yes Status: Acute 400 mg labetalol PO failed to bring BP down 20 mg labetalol IV given and failed 10mg hydralazine given x 1 and failed 10mg hydralazine given for second dose and failed 1mg ativan given and brought pressure to 160/80 60mg procardia xl ordered per Dr. Licea - failed At this time care is fully turned over to Dr. Licea Subjective - Subjective Principal diagnosis: hypertensive in office Interval history: Ms. Paul is an at 35 weeks 3 days gestation who presents from the office today with c/o elevated blood pressure. She denies lozoya, blurry vision, epigastric pain and endorses good fm and denies ctx, lof, vb. Antepartum ROS: loss of fluid, movement normal, no new complaints, no vaginal bleeding, no contractions Objective - Vital Signs Vital Signs: Intake and Output 09/28/17 09/28/17 09/28/17 07:59 15:59 23:59 Other: Weight 122.2 kg Patient Weight 09/28/17 23:59 Weight 122.2 kg - Exam FHR: category 1 Auscultation: bilateral: normal Abdomen: Present: normal appearance, soft, gravid Uterus: Present: normal, firm
[2017-09-28] MEDS ORDERED: NIFEdipine XL (24 HR) 60 MG TAB.ER.24 PO SCH (18:30)
[2017-09-28 20:38] LABS: Basophils % 0.2 %; Eosinophils # 0.1 K/mcL (0.0-0.6); Eosinophils % 0.5 %; Hematocrit 36.9 % (35.3-44.9); Hemoglobin 12.9 g/dL (11.5-15.4); Immature Granulocytes % 1.3 % (0-4); Lymphocytes % 17.2 %; Mean Corpuscular Hemoglobin 30.9 pg (28.0-33.3); Mean Corpuscular Volume 88.5 fL (83.0-100.0); Monocytes # 1.2 K/mcL (0.0-1.3); Neutrophils # 12.9 K/mcL (1.6-8.9); Platelet Count 271 K/mcL (140-400); Red Blood Count 4.17 M/mcL (3.82-4.97); Red Cell Distribution Width 13.1 % (11.5-14.5); Segmented Neutrophils % 73.8 %
--- NOTE | 2017-09-28 20:53 | OB/GYN History & Physical ---
Date of Encounter: 09/28/17 Time of Encounter: 20:48 Assessment and Plan (1) and not yet delivered in third trimester Current visit: Yes Status: Acute (2) 35 weeks gestation of Current visit: Yes Status: Acute (3) Hypertension affecting , antepartum, third trimester Current visit: Yes Status: Acute We will titrate labetalol until we can get her blood pressure and control we will increase to 600 mg 3 times a day she surgery received Procardia 60 mg XL we will give her Ativan 2 mg IV push for her anxiety History of Present Illness HPI: Ms. Paul is a 32 year old female 2 para 1 at 35-3/7 weeks who was sent over from the office secondary to elevated blood pressures patient was getting her twice weekly NSTs and blood pressure was 160/94 with a repeat of 170 /100 she was asymptomatic however because of blood pressures was so high she was sent to labor and delivery for serial blood pressures patient was seen last week for similar complaints they watched for 48 hours had increased to labetalol from 200 mg 3 times a day to 400 mg 3 times a day patient again frustrated that we keep centimeters to labor and delivery from the office because of her blood pressure she states that had trouble controlling her blood pressure even when she is not . She is not complaining of any headaches blurred vision or scotoma pharyngitis and sinusitis tinnitus. Patient upon arrival to labor and delivery was noted to have markedly elevated blood pressures even after medications. Patient blood pressure was high as 192/ 103 patient had received 2 doses of hydralazine 10 mg, 20 mg labetalol IV push we gave her 1 mg of Ativan, 400 mg by mouth labetalol, and 60 mg Procardia XL. Blood pressures continue to remain elevated 173/86 170/90 we finally gave her another dose of labetalol 40 mg IV push. Blood pressures still 190s over 105. Case was discussed with maternal- medicine images recommended titrating her medications until something stabilizes her. [facility] labs are still pending at the time of this dictation if they are abnormal they recommended delivery we did discuss this with the patient that they are recommending we go to 600 mg 3 times a day on the labetalol we will give her first dose at 2100 I recommended we see the patient and then give her 2 mg of Ativan because she is so anxious and upset this might help with her blood pressure. Baby is remained stable on the NST reactive in the 140s occasional contractions seen. When patient was here last week she did receive steroids and has a female infant on board Past Med Surg Social Fam HX - Past Medical History Medical history: hypertension (chronic) Psychiatric history: anxiety, depression - Past Surgical History Surgical History: no surgical history - Social History Smoking Status: Current every day smoker Packs per day: 3 cigs/daily Smokeless Tobacco Status: No Alcohol use: none Drug use: none Occupational status: unemployed Current living situation: Home - Independent Activity Level: Independent ambulation Recent Out of Country Travel Within the Last 8 Weeks: No Exposure or Possible Exposure to Illness During Travel: No - Family History Mother Family Member Ethnicity: Non- Living Status: Still Living Hx Family Cardiac Disorders: Yes (htn) Hx Family Respiratory Disorders: No Hx Family Cancer: No Hx Family GI Disorders: No Hx Family Endocrine Disorder: No Hx Family Neuromuscular Disorders: No Hx Family Neurologic Disorders: No Hx Family HEENT Disorders: No Hx Family Autoimmune Disorders: No - Additional Family History Additional family history: Family history noncontributory Obstetrical History - Pregnancies : 2 Para: 1 Term: 0 : 0 Ab's: 0 Livin Medications and Allergies Vit/Iron Fumarate/FA [ Tablet] 1 each PO DAILY 09/03/16 [ History] cephALEXin [Keflex] 500 mg PO BID 09/03/16 [History] Labetalol HCl 400 mg PO TID #180 tablet 09/25/17 [Rx] Labetalol [Trandate] 400 mg PO TID tablet 09/25/17 [Rx] Vit/FA 1 each PO DAILY tablet 09/25/17 [Rx] 3 Allergy/AdvReac Type Severity Reaction Status Date / Time No Known Allergies Allergy Verified 09/28/17 15:05 Review of System OB All systems PM: reviewed and no additional remarkable complaints except as stated Exam - Constitutional Constitutional: well developed, well nourished, no acute distress, moderate distress - HEENT HEENT: Oral Lesions, EOMI, PERRL, Mucus Membranes Moist - Neck Neck exam: full ROM - Lungs Respiratory exam: accessory muscle use, CTAB - Cardiovascular Cardiovascular exam: RRR - Abdomen Abdomen: Present: bowel sounds normal, gravid ( heart tones 140s reactive occasional contractions and) Results Result Diagrams: 09/28/17 20:28 Abnormal lab results WBC 17.5 K/mcL (4.3-11.1) H 09/28/17 20:28 Neutrophils # 12.9 K/mcL (1.6-8.9) H 09/28/17 20:28 All other labs normal. - VTE Reasons for not Prescribing Prophylaxis: Treatment not Indicated - Low risk for VTE
[2017-09-28 21:04] LABS: Alanine Aminotransferase 30 Units/L (7-52); Aspartate Amino Transferase 21 Units/L (13-39); BUN/Creatinine Ratio 10 (6-26); Blood Urea Nitrogen 6 mg/dL (6-20); Lactate Dehydrogenase 185 Units/L (140-271); Uric Acid 4.5 mg/dL (2.3-7.6); eGFR For Non-African Americans > 60 (> 60)
[2017-09-28 21:34] LABS: Protein/Creatinine Ratio,Urine 0.2 mg/mg (0.00-0.20)
[2017-09-28] MEDS: *HR* LORazepam 2 MG/ML VIAL IVP PRN (23:11)
[2017-09-29] MEDS ORDERED: *HR* Labetalol 20 MG/4 ML SYRINGE IVP ONE ×2 (03:05)
[2017-09-29] MEDS: *HR* LORazepam 2 MG/ML VIAL IVP PRN (13:00)
--- NOTE | 2017-09-29 15:11 | OB/GYN Progress Note ---
Date of Encounter: 09/29/17 Time of Encounter: 15:08 - Assessment and Plan (1) 35 weeks gestation of Current Visit: Yes Status: Acute admitted for observation (2) Hypertension affecting , antepartum, third trimester Current Visit: Yes Status: Acute Continue Labetalol 600mg po TID Continue Procardia 60XL every [address] Diego aware of POC and current treatment (3) NST (non-stress test) reactive on surveillance Current Visit: Yes Status: Acute FHR baseline 135 bpm moderate variability +15x15 accels no decels noted. No contractions. Cat. 1 tracing. Subjective - Subjective Principal diagnosis: Chronic Hypertension in Interval history: Patient is a 32 y/o at 35w4d admitted for observation for BP control. Patient denies IZQUIERDO, visual disturbances or epigastric pain. Patient reports +FM. Denies contractions, LOF or VB. Antepartum ROS: movement normal, no loss of fluid, no vaginal bleeding, no contractions Objective - Exam FHR: auscultation normal, category 1 FHR comments: 135 bpm moderate variability +15x15 accels no decels noted. CAt. 1 tracing NO contractions Auscultation: bilateral: normal Abdomen: Present: normal appearance, soft, gravid Comments: 2+DTRs no clonus - Labs Labs: Abnormal lab results WBC 17.5 K/mcL (4.3-11.1) H 09/28/17 20:28 Neutrophils # 12.9 K/mcL (1.6-8.9) H 09/28/17 20:28
[2017-09-29] MEDS ORDERED: *HR* LORazepam 2 MG/ML VIAL IVP PRN (15:37)
--- NOTE | 2017-09-29 20:34 | OB Labor Progress Note ---
Date of Encounter: 09/29/17 Time of Encounter: 20:29 Labor Progress Note - Subjective Subjective: Pt states she feels fine and wants to go home. - Vital Signs Vital Signs: 158/98 - Interventions Interventions: Cont. Labetalol 600 TID and Procardia in evening recieved 60 mg last night, today overall sx's are better. Will decrease to 30 mg daily. - Plan Plan: Pt desires to go home. I d/w pt my concern for risk of unpredictable abruption or stroke. Pt states she understands these risks is just worried that the hospital is making her more nervous.
[2017-09-29] MEDS: NIFEdipine XL (24 HR) 60 MG TAB.ER.24 PO SCH (21:36)
[2017-09-30] MEDS ORDERED: Acetaminophen 325 MG TABLET PO PRN (05:48)
[2017-09-30] MEDS: NIFEdipine XL (24 HR) 60 MG TAB.ER.24 PO SCH (08:27)
[2017-09-30] MEDS ORDERED: Prenatal Vit/FA 1 EACH TABLET PO SCH (09:00)
[2017-09-30 09:35] LABS: Basophils % 0.2 %; Eosinophils # 0.1 K/mcL (0.0-0.6); Eosinophils % 0.6 %; Hematocrit 34.9 % (35.3-44.9); Hemoglobin 12.5 g/dL (11.5-15.4); Immature Granulocytes % 0.5 % (0-4); Lymphocytes # 2.5 K/mcL (0.6-4.6); Lymphocytes % 15.2 %; Mean Corpuscular HGB Conc 35.8 g/dL (31.6-35.5); Mean Corpuscular Hemoglobin 30.5 pg (28.0-33.3); Mean Corpuscular Volume 85.1 fL (83.0-100.0); Mean Platelet Volume 10.1 fL (9.4-12.4); Monocytes # 0.8 K/mcL (0.0-1.3); Monocytes % 4.8 %; Platelet Count 274 K/mcL (140-400); Red Cell Distribution Width 13.2 % (11.5-14.5); Segmented Neutrophils % 78.7 %
[2017-09-30 10:05] LABS: Alanine Aminotransferase 25 Units/L (7-52); Aspartate Amino Transferase 14 Units/L (13-39); BUN/Creatinine Ratio 7 (6-26); Blood Urea Nitrogen 5 mg/dL (6-20); Lactate Dehydrogenase 131 Units/L (140-271); Uric Acid 4.5 mg/dL (2.3-7.6); eGFR For Non-African Americans > 60 (> 60)
[2017-09-30 10:15] VITALS: BP 126/83
--- NOTE | 2017-09-30 10:55 | Discharge Summary ---
Date of Encounter: 09/30/17 Time of Encounter: 10:57 - Discharge Diagnosis (1) 35 weeks gestation of Priority: Secondary Status: Acute (2) Hypertension affecting , antepartum, third trimester Priority: Primary Status: Acute Comments: Blood pressures significantly improved with 600mg TID labetalol and procardia xl 30mg. Pt denies s/sx preeclampsia. Discharge home with strict return precautions. Importance of medication adherence emphasized. Pt to follow-up for NST tomorrow as scheduled. POC per Dr. Bishop - Discharge Medications Prescriptions: Labetalol HCl 600 mg PO TID #180 tablet NIFEdipine XL (24 HR) [Procardia XL] 60 mg PO DAILY #30 tab.er.24 Home Medications: Vit/Iron Fumarate/FA [ Tablet] 1 each PO DAILY 09/03/16 [ History] Vit/FA 1 each PO DAILY tablet 09/25/17 [Rx] Acetaminophen [Tylenol] 650 mg PO Q6HR PRN tablet 09/30/17 [Rx] Labetalol HCl 600 mg PO TID #180 tablet 09/30/17 [Rx] NIFEdipine XL (24 HR) [Procardia XL] 60 mg PO DAILY #30 tab.er.24 09/30/17 [Rx] Vit/FA 1 each PO DAILY tablet 09/30/17 [Rx] Allergies/Adverse Reactions: 3 Allergy/AdvReac Type Severity Reaction Status Date / Time No Known Allergies Allergy Verified 09/28/17 15:05 Data Procedures and tests throughout hospitalization: Laboratory Tests 09/28/17 09/28/17 09/28/17 15:18 20:27 20:28 WBC 17.5 H RBC 4.17 Hgb 12.9 Hct 36.9 MCV 88.5 MCH 30.9 MCHC 35.0 RDW 13.1 Plt Count 271 MPV 11.0 Immature Gran % 1.3 Seg Neutrophils % 73.8 Lymphocytes % 17.2 Monocytes % 7.0 Eosinophils % 0.5 Basophils % 0.2 Neutrophils # 12.9 H Lymphocytes # 3.0 Monocytes # 1.2 Eosinophils # 0.1 Basophils # 0.0 BUN Creatinine Est GFR ( Amer) Est GFR (Non-Af Amer) BUN/Creatinine Ratio Uric Acid AST ALT Lactate Dehydrogenase Urine Creatinine 51 Protein/Creatinin Ratio 0.20 Urine Total Protein 10 Urine Opiates Screen Negative Ur Barbiturates Screen Negative Ur Phencyclidine Scrn Negative Ur Amphetamines Screen Negative U Benzodiazepines Scrn Negative Urine Cocaine Screen Negative U Marijuana (THC) Screen Negative Ur Drug Screen Interp See Below 09/28/17 09/30/17 09/30/17 20:28 09:22 09:22 WBC 16.6 H RBC 4.10 Hgb 12.5 Hct 34.9 L MCV 85.1 MCH 30.5 MCHC 35.8 H RDW 13.2 Plt Count 274 MPV 10.1 Immature Gran % 0.5 Seg Neutrophils % 78.7 Lymphocytes % 15.2 Monocytes % 4.8 Eosinophils % 0.6 Basophils % 0.2 Neutrophils # 13.0 H Lymphocytes # 2.5 Monocytes # 0.8 Eosinophils # 0.1 Basophils # 0.0 BUN 6 5 L Creatinine 0.62 0.71 Est GFR ( Amer) > 60 > 60 Est GFR (Non-Af Amer) > 60 > 60 BUN/Creatinine Ratio 10 7 Uric Acid 4.5 4.5 AST 21 14 ALT 30 25 Lactate Dehydrogenase 185 131 L Urine Creatinine Protein/Creatinin Ratio Urine Total Protein Urine Opiates Screen Ur Barbiturates Screen Ur Phencyclidine Scrn Ur Amphetamines Screen U Benzodiazepines Scrn Urine Cocaine Screen U Marijuana (THC) Screen Ur Drug Screen Interp Labs on day of discharge: Labs from last 24 hours 09/30/17 09/30/17 09:22 09:22 WBC 16.6 H RBC 4.10 Hgb 12.5 Hct 34.9 L MCV 85.1 MCH 30.5 MCHC 35.8 H RDW 13.2 Plt Count 274 MPV 10.1 Immature Gran % 0.5 Seg Neutrophils % 78.7 Lymphocytes % 15.2 Monocytes % 4.8 Eosinophils % 0.6 Basophils % 0.2 Neutrophils # 13.0 H Lymphocytes # 2.5 Monocytes # 0.8 Eosinophils # 0.1 Basophils # 0.0 BUN 5 L Creatinine 0.71 Est GFR ( Amer) > 60 Est GFR (Non-Af Amer) > 60 BUN/Creatinine Ratio 7 Uric Acid 4.5 AST 14 ALT 25 Lactate Dehydrogenase 131 L Date of admission: 09/28/17 14:45 Primary care physician: Sia Oakley Discharging clinician: Marita Lott ([facility]) Anticipated date of discharge: 08/01/18 - Patient Status Disposition: Home, Self-Care Condition: Good Functional capacity at discharge: independent ambulation Overall status at discharge: patient is progressing back to baseline - Discharge Instructions Follow Up With: Sia Oakley [Primary Care Provider] - Reynaldo Diego MD [Partnered Physician] - - Diet and Activity Activity: other (light activity) Diet: regular diet Hospital Course [employer] Reason for admission: other (chronic hypertension in ) Hospital course: Pt admitted with severe range blood pressures requiring IV medication. SHe was stabilized and transitioned to PO medications. BP's well controlled prior to discharge home on labetalol and procardia. Time Attestation: Total time spent providing and/or coordinating discharge services: Exam - Constitutional Vitals: Temp Pulse Resp BP Pulse Ox 98.1 F 88 18 126/83 97 09/30/17 07:46 09/30/17 07:46 09/30/17 07:46 09/30/17 10:14 09/30/17 07:46 General appearance IM: A&O X 3, no acute distress - Respiratory Respiratory exam: Present: CTAB - Cardiovascular Cardiovascular exam IM: Present: RRR, +S1, +S2 - GI/Abdominal GI/Abdominal exam IM: soft - Additional comments: NST reactive - Extremities Exam Extremities exam IM: Present: normal inspection - Neurological Exam Neurological exam: normal gait, oriented X3 Additional comments: Pt reports IZQUIERDO earlier that has now resolved - VTE Reasons for not Prescribing Prophylaxis: Treatment not Indicated - Low risk for VTE
== END 2017-09-30 11:30 | disposition home or self-care (01) ==
LOC: 1NENULAB → 1NENUOBS 09-29 15:49
PROVIDERS: ADMIT Obstetrics & Gynecology; ATTEND Obstetrics & Gynecology

== ENCOUNTER 2017-10-24 08:00 | Inpatient (IN) ==
[2017-10-24] MEDS ORDERED: miSOPROStol 25 MCG TABLET VG PRN (09:00)
[2017-10-24] MEDS ORDERED: Famotidine 20 MG/2 ML VIAL IVP PRN (09:02)
[2017-10-24] MEDS ORDERED: Metoclopramide 10 MG/2 ML VIAL IVP PRN (09:02)
[2017-10-24] MEDS ORDERED: Ondansetron 4 MG/2 ML VIAL IVP PRN (09:02)
[2017-10-24] MEDS ORDERED: Naloxone 0.4 MG/ML INJ IVP PRN (09:02)
[2017-10-24 09:38] LABS: Basophils % 0.2 %; Eosinophils # 0.1 K/mcL (0.0-0.6); Eosinophils % 0.4 %; Hemoglobin 11.7 g/dL (11.5-15.4); Immature Granulocytes % 0.6 % (0-4); Lymphocytes # 2.1 K/mcL (0.6-4.6); Lymphocytes % 14.5 %; Mean Corpuscular HGB Conc 34.4 g/dL (31.6-35.5); Mean Corpuscular Hemoglobin 29.5 pg (28.0-33.3); Mean Corpuscular Volume 85.6 fL (83.0-100.0); Mean Platelet Volume 9.9 fL (9.4-12.4); Monocytes # 0.8 K/mcL (0.0-1.3); Monocytes % 5.2 %; Neutrophils # 11.5 K/mcL (1.6-8.9); Platelet Count 285 K/mcL (140-400); Red Blood Count 3.97 M/mcL (3.82-4.97); Red Cell Distribution Width 12.8 % (11.5-14.5); Segmented Neutrophils % 79.1 %
[2017-10-24] MEDS ORDERED: miSOPROStol 25 MCG TABLET PO SCH ×2 (09:53→12:00)
[2017-10-24 09:57] LABS: Amphetamine Screen,Urine Negative ng/mL (Cutoff=1000); Barbiturate Screen,Urine Negative ng/mL (Cutoff=200); Benzodiazepines Screen,Urine Negative ng/mL (Cutoff=200); Cannabinoid Screen,Urine Negative ng/mL (Cutoff = 50); Cocaine Screen,Urine Negative ng/mL (Cutoff= 300); Opiate Screen,Urine Negative ng/mL (Cutoff=300); Phencyclidine Screen,Urine Negative ng/mL (Cutoff=25)
[2017-10-24 09:58] LABS: Alanine Aminotransferase 15 Units/L (7-52); Aspartate Amino Transferase 13 Units/L (13-39); BUN/Creatinine Ratio 7 (6-26); Blood Urea Nitrogen 5 mg/dL (6-20); Uric Acid 4.4 mg/dL (2.3-7.6); eGFR For Non-African Americans > 60 (> 60)
[2017-10-24 10:54] LABS: Lactate Dehydrogenase 119 Units/L (140-271)
--- NOTE | 2017-10-24 12:07 | OB/GYN History & Physical ---
Date of Encounter: 10/24/17 Time of Encounter: 12:16 Assessment and Plan (1) 39 weeks gestation of Current visit: Yes Status: Acute Admit to Labor and Delivery Cytotec PO q4 Nubain and epidural as desired 20mg IVP labetalol now PIH labs Anticipate (2) Hypertension Current visit: Yes Status: Acute Qualifiers: Hypertension type: unspecified Qualified Code(s): I10 - Essential (primary ) hypertension (3) Tobacco use Current visit: Yes Status: Acute (4) Hypertension affecting , antepartum, third trimester Current visit: Yes Status: Acute History of Present Illness Chief complaint: Induction of labor HPI: Ms. Paul is a 32 year old female 001 presenting to [facility] for induction of labor at 39 weeks +1 days gestational age. Patient has received care for this at [facility] from Dr. Forrester. Current has been complicated by hypertension, tobacco use, as well as steroids 2 given in August 2017 as a prophylactic measure in case of premature delivery due to the patient being hospitalized for hypertension. -Patient reports good movement as per usual, denies vaginal bleeding, discharge, or fluid leakage. Blood type is A+, GBS negative, rubella IgG antibody is positive, varicella- zoster virus IgG antibody positive, HIV antigen/antibody combo negative, hepatitis B antigen negative, all other serologies negative. Past Med Surg Social Fam HX - Past Medical History Attestation: Yes The following information was validated with the patient. Source: patient, nursing notes reviewed Medical history: hypertension Psychiatric history: anxiety, depression - Past Surgical History Surgical History: no surgical history - Social History Smoking Status: Current every day smoker Packs per day: .25 Smokeless Tobacco Status: No Alcohol use: none Drug use: none - Family History Mother Family Member Ethnicity: Non- Living Status: Still Living Hx Family Cardiac Disorders: Yes (HTN) Hx Family Respiratory Disorders: No Hx Family Cancer: No Hx Family GI Disorders: No Hx Family Endocrine Disorder: No Hx Family Neuromuscular Disorders: No Hx Family Neurologic Disorders: No Hx Family HEENT Disorders: No Hx Family Autoimmune Disorders: No Obstetrical History - Pregnancies : 2 Para: 1 Term: 1 : 0 Ab's: 0 Livin Medications and Allergies Vit/FA 1 each PO DAILY tablet 09/25/17 [Rx] Labetalol HCl 600 mg PO TID #180 tablet 09/30/17 [Rx] NIFEdipine XL (24 HR) [Procardia XL] 60 mg PO DAILY #30 tab.er.24 09/30/17 [Rx] 3 Allergy/AdvReac Type Severity Reaction Status Date / Time No Known Allergies Allergy Verified 09/28/17 15:05 Review of System OB All systems PM: reviewed and no additional remarkable complaints except as stated - Constitutional Constitutional ROS IM: no chills, no fever(s), no headache(s) - Cardiovascular Cardiovascular: edema, no chest pain, no dyspnea - Respiratory Respiratory: no dyspnea - Gastrointestinal Gastrointestinal: no abdominal pain, no nausea, no vomiting - Genitourinary Genitourinary: no dysuria - Muscloskeletal Musculoskeletal: bilateral: ankle swelling - Neurological Nerological: no disequilibrium, no dizziness, no headache(s), no loss of vision Exam - Constitutional Constitutional: well developed, well nourished, no acute distress, morbidly obese - HEENT HEENT: EOMI, PERRL, Normocephaly, Mucus Membranes Moist - Lungs Respiratory exam: CTAB - Cardiovascular Cardiovascular exam: RRR, +S1, +S2 - Abdomen Abdomen: Present: bowel sounds normal, gravid, non tender. Absent: diffuse tenderness, guarding noted - Extremities Extremities exam: pedal edema (+1 pitting edema noted in bilateral lower extremities.), warm Deep Tendon Reflex Grade: 2+ Normal - Cervix Dilation: 3 Effacement: 75 Station: -2 Results Result Diagrams: 10/24/17 09:25 10/24/17 09:25 Abnormal lab results WBC 14.6 K/mcL (4.3-11.1) H 10/24/17 09:25 Hct 34.0 % (35.3-44.9) L 10/24/17 09:25 Neutrophils # 11.5 K/mcL (1.6-8.9) H 10/24/17 09:25 BUN 5 mg/dL (6-20) L 10/24/17 09:25 Lactate Dehydrogenase 119 Units/L (140-271) L 10/24/17 09:25 All other labs normal. - VTE Reasons for not Prescribing Prophylaxis: Treatment not Indicated - Low risk for VTE - Attending Attestation I examined this patient and my medical decision-making was reviewed with the Resident Physician. I agree with the documented findings, disposition and treatment plan as described. Elodia Forrester DO
[2017-10-24] MEDS ORDERED: *HR* Labetalol 20 MG/4 ML SYRINGE IVP ONE ×2 (12:28→17:13)
[2017-10-24] MEDS: Ringers Solution, Lactated 1,000 ML IVC SCH ×2 (12:39→17:21)
--- NOTE | 2017-10-24 14:00 | Anesthesia Evaluation PreOp ---
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 Any Significant HX Other Medical History: Denies Any Significant HX : Yes (39week ) Alcohol Use: none Drug use: none Medications and Allergies Vit/FA 1 each PO DAILY tablet 09/25/17 [Rx] Labetalol HCl 600 mg PO TID #180 tablet 09/30/17 [Rx] NIFEdipine XL (24 HR) [Procardia XL] 60 mg PO DAILY #30 tab.er.24 09/30/17 [Rx] 3 Allergy/AdvReac Type Severity Reaction Status Date / Time No Known Allergies Allergy Verified 09/28/17 15:05 - Meds/Allergy Pre-op Review Medications Reviewed: Yes Allergies Reviewed: Yes Beta Blockers on Current Med List: Yes If Beta Blockers taken, Date/Time (Last Dose taken): 8- 1300 Anesthesia Results - Labs 10/24/17 09:25 10/24/17 09:25 Anesthesia Exam O2 Sat Height 1.65 m Height 1.65 m Weight 120 kg Weight 120 kg bp 144/99 Height: 65 Weight: 120 - HEENT Pupil (Motor): Pupils equal Mallampati: II Teeth: Normal Oral Opening: Greater than 3 - GYMNASTICS COACH OR INSTRUCTOR LOC: Oriented GYMNASTICS COACH OR INSTRUCTOR Motor: Normal RUE, Normal LUE, Normal RLE, Normal LLE, Normal Face GYMNASTICS COACH OR INSTRUCTOR Sensory: Normal: RUE, LUE, RLE, LLE, Face - Cardiac Rhythm: Regular Murmur: None JVD: No Carotid Bruit: No - Pulmonary Breath Sounds: bilateral Clear Respiratory Effort: Symmetrical Anesthesia Assess/Plan ASA Score: 2 Modified Ling Scale for Level of Consciousness: Cooperative, oriented, and tranquil Anesthetic Plan: Regional Autologous Blood: No Monitoring Plan: Standard Monitors
[2017-10-24] MEDS ORDERED: Oxytocin 20 units/ LR 1000 mL 20 UNIT/1,000 ML BAG IVC SCH ×2 (14:30→20:51)
[2017-10-24] MEDS ORDERED: Epidural Premix (fent/bupiv) 110 ML EP ONE (16:02)
[2017-10-24] MEDS ORDERED: Lidocaine -MPF 1% 5 ML AMPUL ONE (16:03)
[2017-10-24] MEDS ORDERED: *HR* FentaNYL (PF) 100 MCG/2 ML VIAL ONE (16:03)
[2017-10-24] MEDS ORDERED: *HR* Ropivacaine/PF 0.2% 20 ML VIAL ONE (16:03)
[2017-10-24] MEDS ORDERED: Water for inj. (sterile) 10 ML IV ONE (16:03)
[2017-10-24] MEDS ORDERED: *HR* FentaNYL (PF) 100 MCG/2 ML VIAL EP ONE (16:25)
[2017-10-24] MEDS ORDERED: *HR* Ropivacaine/PF 0.2% 20 ML VIAL EP ONE (16:25)
[2017-10-24] MEDS ORDERED: EPHEDrine 50 MG/ML VIAL IVP PRN (16:25)
--- NOTE | 2017-10-24 16:29 | Anesthesia Procedures ---
Date of Encounter: 10/24/17 Time of Encounter: 16:28 Procedures: Anesthesia - Epidural/Spinal Patient ID/Chart reviewed: Yes Patient examined: Yes OB Eval: Contractions: Non-stressed pattern Consent Obtained: Yes Supplemental Oxygen: None/Room Air Site Prep: Aseptic Technique Patient position: upright Local Anesthetic: Lidocaine 1% Amount of Local Anesthetic used: 3 Touhy Needle Gauge: 18 Touhy Needle Depth (cm): 7 Catheter Depth at Skin (cm): 13 Test Dose (1.5% Lido + Epi): Volume given (mls): 3 Test Dose Result: Negative Loading Dose: Fentanyl (mcg): 100 Loading Dose: Other: 6ml 0.2%ropi Loading Dose Administered: Thru Touhy Needle Infusion Med: 0.125% Bupivacaine w/ 2 mcg/ml Fentanyl Infusion Rate (mls/hr): [address]: Tegaderm Interspace Used: L2-L3 Loss of Resistance (PATRICIA): Yes Blood: No CSF: No Paresthesia: No
[2017-10-24] MEDS ORDERED: Epidural Premix (fent/bupiv) 110 ML EP SCH (16:30)
--- NOTE | 2017-10-24 17:12 | OB Labor Progress Note ---
Date of Encounter: 10/24/17 Time of Encounter: 17:10 Labor Progress Note - Subjective Subjective: Patient comfortable after her epidural. She denies any complaints. - Cervix Cervix: 6/75/-1 vertex - Heart Tones Heart Tones: 125 baseline, category 1 - Merriman Merriman: q 1-2 minutes - Interventions Interventions: AROM with clear fluid. IUPC placed without difficulty. - Plan Plan: Continue pitocin induction. BP 163/90, another dose of 20 mg labatolol IV will be given
--- NOTE | 2017-10-24 18:51 | OB/GYN Procedure Note ---
Delivery - Delivery Date: 10/24/17 Provider: Elodia Forrester Intrapartum events: none Delivery induction: AROM, oxytocin, misoprostol Delivery monitor: external FHT, external uterine, internal uterine Anesthesia: epidural Quantitated Blood Loss: 100 - Infant (s) A Infant Delivery Date: 10/24/17 Infant Delivery Time: 18:33 Presentation: vertex Position: MIREYA Route of delivery: Gender: Female Viability: Viable Pounds: 6 Ounces: 11 at 1 minute: 9 at 5 mins: 9 Shoulder Dystocia: not encountered Specimens collected: cord blood Placenta: spontaneous Cord: 3 umbilical vessels - Repair Episiotomy: none Laceration Description: Perineal - 1st Degree, Labial (anterior) - Complications Delivery complications: none Delivery comments: Called to room with patient complete and +2 station. Under maternal effort she delivered a viable female weighing 6 lbs. 11 oz. and Apgars 9 and 9 at one and 5 minutes respectively over a first-degree perineal laceration. Following delivery of the head there was no nuchal cord encountered. Mother delivered shoulders and body without difficulty or dystocia. was placed on mom's abdomen and cord was allowed to cease pulsations before being double clamped and ligated. Placenta delivered spontaneously, complete, and intact with a three-vessel cord. On inspection she had an anterior labial laceration that was hemostatic without repair and a first-degree perineal laceration. 3-0 Vicryl was used to repair the first-degree in a [id number] fashion. Hemostasis was assured. Mother and infant recovering in LDR and table condition. - Disposition Mom disposition: stable in LDR [place] disposition: stable in LDR
[2017-10-24] MEDS ORDERED: Acetaminophen 325 MG TABLET PO PRN (20:51)
[2017-10-24] MEDS ORDERED: Oxytocin 20 units/ LR 1000 mL 20 UNIT/1,000 ML BAG IVC ONE (20:51)
[2017-10-24] MEDS: Ibuprofen 600 MG TABLET PO PRN (21:21)
[2017-10-25] MEDS: Ibuprofen 600 MG TABLET PO PRN ×2 (08:46→15:39)
[2017-10-25] MEDS ORDERED: Prenatal Vit/FA 1 EACH TABLET PO SCH (09:00)
[2017-10-25] MEDS ORDERED: NIFEdipine XL (24 HR) 60 MG TAB.ER.24 PO SCH (09:00)
--- NOTE | 2017-10-25 09:33 | Discharge Summary ---
Date of Encounter: 10/25/17 Time of Encounter: 09:31 - Discharge Diagnosis (1) Hypertension Priority: Primary Status: Acute Comments: Will discharge home on procardia and labatelol TID. Instructed to follow up with PCP Qualifiers: Hypertension type: unspecified Qualified Code(s): I10 - Essential (primary ) hypertension (2) Vaginal delivery Priority: Primary Status: Acute Comments: Stable PPD#1, meeting all milestones, pain well managed on po pain medication, tolerates diet, bottle feeding, desires discharge - Discharge Medications Prescriptions: Ibuprofen [Motrin] 600 mg PO Q6HR PRN #60 tablet PRN Reason: Cramping Docusate [Colace] 100 mg PO BID #30 capsule Labetalol HCl 600 mg PO TID #180 tablet NIFEdipine XL (24 HR) [Procardia XL] 60 mg PO DAILY #30 tab.er.24 Home Medications: Vit/FA 1 each PO DAILY tablet 09/25/17 [Rx] Acetaminophen [Tylenol] 650 mg PO Q6HR PRN tablet 10/25/17 [Rx] Docusate [Colace] 100 mg PO BID #30 capsule 10/25/17 [Rx] Ibuprofen [Motrin] 600 mg PO Q6HR PRN #60 tablet 10/25/17 [Rx] Labetalol HCl 600 mg PO TID #180 tablet 10/25/17 [Rx] NIFEdipine XL (24 HR) [Procardia XL] 60 mg PO DAILY #30 tab.er.24 10/25/17 [Rx] Vit/FA 1 each PO DAILY tablet 10/25/17 [Rx] Allergies/Adverse Reactions: 3 Allergy/AdvReac Type Severity Reaction Status Date / Time No Known Allergies Allergy Verified 09/28/17 15:05 Data Procedures and tests throughout hospitalization: Laboratory Tests 10/24/17 10/24/17 10/24/17 09:25 09:25 09:25 WBC 14.6 H RBC 3.97 Hgb 11.7 Hct 34.0 L MCV 85.6 MCH 29.5 MCHC 34.4 RDW 12.8 Plt Count 285 MPV 9.9 Immature Gran % 0.6 Seg Neutrophils % 79.1 Lymphocytes % 14.5 Monocytes % 5.2 Eosinophils % 0.4 Basophils % 0.2 Neutrophils # 11.5 H Lymphocytes # 2.1 Monocytes # 0.8 Eosinophils # 0.1 Basophils # 0.0 BUN 5 L Creatinine 0.68 Est GFR ( Amer) > 60 Est GFR (Non-Af Amer) > 60 BUN/Creatinine Ratio 7 Uric Acid 4.4 AST 13 ALT 15 Lactate Dehydrogenase 119 L Urine Opiates Screen Negative Ur Barbiturates Screen Negative Ur Phencyclidine Scrn Negative Ur Amphetamines Screen Negative U Benzodiazepines Scrn Negative Urine Cocaine Screen Negative U Marijuana (THC) Screen Negative Ur Drug Screen Interp See Below Labs on day of discharge: Labs from last 24 hours 10/24/17 10/24/17 10/24/17 09:25 09:25 09:25 WBC 14.6 H RBC 3.97 Hgb 11.7 Hct 34.0 L MCV 85.6 MCH 29.5 MCHC 34.4 RDW 12.8 Plt Count 285 MPV 9.9 Immature Gran % 0.6 Seg Neutrophils % 79.1 Lymphocytes % 14.5 Monocytes % 5.2 Eosinophils % 0.4 Basophils % 0.2 Neutrophils # 11.5 H Lymphocytes # 2.1 Monocytes # 0.8 Eosinophils # 0.1 Basophils # 0.0 BUN 5 L Creatinine 0.68 Est GFR ( Amer) > 60 Est GFR (Non-Af Amer) > 60 BUN/Creatinine Ratio 7 Uric Acid 4.4 AST 13 ALT 15 Lactate Dehydrogenase 119 L Urine Opiates Screen Negative Ur Barbiturates Screen Negative Ur Phencyclidine Scrn Negative Ur Amphetamines Screen Negative U Benzodiazepines Scrn Negative Urine Cocaine Screen Negative U Marijuana (THC) Screen Negative Date of admission: 10/24/17 08:01 Primary care physician: Sia Oakley Consults: 10/24/17 20:51 Consult to Chlorine Cell Tender [CONS] Routine Comment: Vaginal delivery, consult needed Discharging clinician: Malini Peralta Anticipated date of discharge: 10/25/17 - Patient Status Disposition: Home, Self-Care Condition: Good Functional capacity at discharge: independent ambulation Overall status at discharge: patient is back to baseline - Discharge Instructions Follow Up With: Sia Oakley [Primary Care Provider] - Elodia Forrester DO [Partnered Physician] - - Diet and Activity Activity: resume usual activities as tolerated Diet: regular diet Hospital Course Reason for admission: induction of labor, IUP at term Delivery: Episiotomy: none Laceration: 1st degree Other procedures: none complications: none Discharge diagnosis: IUP at term delivered [place] baby: female Hospital course: Delivery - Delivery Date: 10/24/17 Provider: Elodia Forrester Intrapartum events: none Delivery induction: AROM, oxytocin, misoprostol Delivery monitor: external FHT, external uterine, internal uterine Anesthesia: epidural Quantitated Blood Loss: 100 - Infant (s) Infant A Delivery Date: 10/24/17 Delivery Time: 18:33 Presentation: vertex Position: MIREYA Route of delivery: Gender: Female Viability: Viable Pounds: 6 Ounces: 11 at 1 minute: 9 at 5 mins: 9 Shoulder Dystocia: not encountered Specimens collected: cord blood Placenta: spontaneous Cord: 3 umbilical vessels - Repair Episiotomy: none Laceration Description: Perineal - 1st Degree, Labial (anterior) - Complications Delivery complications: none Delivery comments: Called to room with patient complete and +2 station. Under maternal effort she delivered a viable female weighing 6 lbs. 11 oz. and Apgars 9 and 9 at one and 5 minutes respectively over a first-degree perineal laceration. Following delivery of the head there was no nuchal cord encountered. Mother delivered shoulders and body without difficulty or dystocia. Infant was placed on mom's abdomen and cord was allowed to cease pulsations before being double clamped and ligated. Placenta delivered spontaneously, complete, and intact with a three-vessel cord. On inspection she had an anterior labial laceration that was hemostatic without repair and a first-degree perineal laceration. 3-0 Vicryl was used to repair the first-degree in a [id number] fashion. Hemostasis was assured. Mother and infant recovering in LDR and table condition. - Disposition Mom disposition: stable in PP and appropriate for discharge Time Attestation: Total time spent providing and/or coordinating discharge services: Time Spent: Less than 30 minutes Exam - Constitutional Vitals: Temp Pulse Resp BP Pulse Ox 98.1 F 83 16 141/99 97 10/25/17 08:38 10/25/17 08:38 10/25/17 08:57 10/25/17 08:38 10/25/17 08:38 General appearance IM: A&O X 3 - Respiratory Respiratory exam: Present: CTAB - Cardiovascular Cardiovascular exam IM: Present: RRR - GI/Abdominal GI/Abdominal exam IM: soft - Uterine Tone: Firm Uterus Position: At Umbilicus - Extremities Exam Extremities exam IM: Present: full ROM, normal capillary refill, normal inspection - Neurological Exam Neurological exam: normal gait, oriented X3 - Psychiatric Additional comments: reports good mood
[2017-10-25 15:32] VITALS: BP 134/87
== END 2017-10-25 17:30 | disposition home or self-care (01) | DRG 560 ==
LOC: 1NENULAB 08:01 → 1NENUOBS 20:50
PROVIDERS: ADMIT Obstetrics & Gynecology; ATTEND Obstetrics & Gynecology